=== PATIENT | female | born 2000 | race African-American/Black ===

== ENCOUNTER 2020-11-28 20:42 | Emergency (ER) | payer MEDICAID ==
[~2020-11-28] VITALS: Ht 170.2 cm; Wt 72.6 kg
[2020-11-28 20:49] VITALS: BP_SYST 114
[2020-11-28 21:38] LABS: CALCIUM 8.3 mg/dL (8.4-11.0); CREATININE 0.93 mg/dL (0.55-1.30); POTASSIUM 3.5 mmol/L (3.5-5.1)
[2020-11-28 21:43] LABS: BASOPHILS # (AUTO) 0.1 K/uL (0.0-0.2); BASOPHILS % (AUTO) 1.2 % (0.0-2.0); EOSINOPHILS # (AUTO) 0.1 K/uL (0.0-0.4); EOSINOPHILS % (AUTO) 1.5 % (0.0-4.0); HEMATOCRIT 36.8 % (36-48); HEMOGLOBIN 12.3 g/dL (12.0-16.0); LYMPHOCYTES # (AUTO) 2.4 K/uL (1.0-5.5); LYMPHOCYTES % (AUTO) 28.7 % (20.5-51.5); MEAN CORPUSCULAR HEMOGLOBIN 29 pg (27-31); MEAN CORPUSCULAR HGB CONC 33 % (32-36); MEAN CORPUSCULAR VOLUME 87 fL (79.0-98.0); MONOCYTES # (AUTO) 0.6 K/uL (0.0-1.0); MONOCYTES % (AUTO) 6.8 % (1.7-9.3); NEUTROPHILS # (AUTO) 5.2 K/uL (1.8-7.7); NEUTROPHILS % (AUTO) 61.8 % (40.0-70.0); PLATELET COUNT (AUTO) 249 K/uL (130-430); RED BLOOD CELL COUNT(AUTO) 4.24 MIL/uL (4.2-6.2); WHITE BLOOD COUNT (AUTO) 8.4 K/uL (4.5-11.0)
[2020-11-28 21:44] LABS: TOTAL BILIRUBIN 0.2 mg/dL (0.0-1.0)
[2020-11-28 22:29] LABS: BILIRUBIN,URINE NEGATIVE (NEGATIVE); CLARITY/URINE CLEAR (CLEAR); COLOR,URINE YELLOW (YELLOW); GLUCOSE,URINE NEGATIVE (NEGATIVE); KETONES,URINE NEGATIVE (NEGATIVE); LEUKOCYTE ESTERASE ,URINE NEGATIVE (NEGATIVE); NITRITE, URINE NEGATIVE (NEGATIVE); PROTEIN URINE NEGATIVE (NEGATIVE); UROBILINOGEN,URINE 0.2 (0.2-1.0)
[2020-11-28 22:33] LABS: BLOOD, URINE TRACE (NEGATIVE)
[2020-11-28 22:35] LABS: BACTERIA,URINE FEW /HPF (None Seen); WBC,URINE 0-3 /HPF (0-3)
[2020-11-28 22:39] LABS: BARBITURATE, URINE NEGATIVE (NEG <=200); BENZODIAZEPINE, URINE NEGATIVE (NEG <=150); CANNABINOID, URINE NEGATIVE (NEG <=50); COCAINE, URINE NEGATIVE (NEG <=150); METHAMPHETAMINES SCREEN,URINE NEGATIVE (NEG <=500); OPIATE, URINE NEGATIVE (NEG <=100); PHENCYCLIDINE SCREEN,URINE NEGATIVE (NEG <=25); UR TRICYCLIC ANTIDEPRESSANTS NEGATIVE (NEG <=300); URINE AMPHETAMINE NEGATIVE (NEG <=500); URINE METHADONE NEGATIVE (NEG <=200); URINE OXYCODONE SCREEN NEGATIVE (NEG <=100); URINE PROPOXYPHENE SCREEN NEGATIVE (NEG <=300)
[2020-11-28 22:41] LABS: ALCOHOL, BLOOD < 3 mg/dL (<10)
[2020-11-28 23:55] VITALS: BP_SYST 114
== END 2020-11-28 23:55 | disposition home or self-care (01) ==
LOC: SED 20:42
DX: F41.9 Anxiety disorder, unspecified (principal); T43.225A Adverse effect of selective serotonin reuptake inhibitors, initial encounter; R42 Dizziness and giddiness; Z79.899 Other long term (current) drug therapy; Y92.89 Other specified places as the place of occurrence of the external cause
CPT/HCPCS: 36415; 80053; 80307; 81000; 81025; 84443; 85025; 99283; G0482

== ENCOUNTER 2021-07-25 14:07 | Emergency (ER) | payer MEDICAID, SELFPAY ==
[~2021-07-25] VITALS: Ht 170.2 cm; Wt 78.0 kg
[2021-07-25 14:18] VITALS: BP_SYST 124
--- NOTE | 2021-07-25 14:20 | NUR ---
Pt to bed #5 coming from home ambulatory with steady gait accompanied by mother. Pt c/o flu symptoms such as body aches 6/10, nausea, fatigue, fever, and lack of appetite since yesterday at 5pm. No chest pain and no sob. VSS. NKA. No known medical conditions. Mother at bedside. Bed in lowest position. Isolation precautions initiated. Tori MANJARREZ to assume care.
--- NOTE | 2021-07-25 14:25 | NUR ---
Dr. Burns at bedside examining pt.
[2021-07-25] MEDS ORDERED: NACL 0.9% 1,000 ML IV ONE (14:45)
[2021-07-25] MEDS ORDERED: ONDANSETRON HCL 4 MG/2 ML VIAL IVP ONE (14:45)
--- NOTE | 2021-07-25 15:26 | NUR ---
Pateint presents to ER with nausea, vomitting for 2 days. She is alert and oriented x 4. Respirations are normal and unlabored. VSS. Upon assessment the patient has a slight fever which she took 2 tylenol for at home. Patient is dehydrated and states she has not had any water since yesterday. VSS.
[2021-07-25 15:33] LABS: CALCIUM 8.8 mg/dL (8.4-11.0); CREATININE 0.81 mg/dL (0.55-1.30); HEMATOCRIT 37.1 % (36-48); HEMOGLOBIN 12.2 g/dL (12.0-16.0); MEAN CORPUSCULAR HEMOGLOBIN 28 pg (27-31); MEAN CORPUSCULAR HGB CONC 33 % (32-36); MEAN CORPUSCULAR VOLUME 85 fL (79.0-98.0); PLATELET COUNT (AUTO) 175 K/uL (130-430); POTASSIUM 3.2 mmol/L (3.5-5.1); RED BLOOD CELL COUNT(AUTO) 4.36 MIL/uL (4.2-6.2); RED CELL DISTRIBUTION WIDTH 13.8 % (9.0-15.0); WHITE BLOOD COUNT (AUTO) 2.8 K/uL (4.5-11.0)
[2021-07-25 15:38] LABS: ALBUMIN 3.8 g/dL (3.4-4.8)
[2021-07-25 17:01] LABS: STREPTOCOCCUS A SCREEN (RAPID) NEGATIVE (NEGATIVE)
[2021-07-25 17:02] LABS: TOTAL BILIRUBIN 0.3 mg/dL (0.0-1.0)
[2021-07-25] MEDS ORDERED: POTA-178 PO (17:10)
--- NOTE | 2021-07-25 17:10 | NUR ---
Patient has tested positive for Covid-19.
[2021-07-25] MEDS ORDERED: POTASSIUM CHLORIDE 20 MEQ/PKT PACKET PO ONE (17:15)
--- NOTE | 2021-07-25 17:31 | NUR ---
Patient given written and verbal discharge instructions and verbalizes understanding. ER MD discussed with patient the results and treatment provided. Patient in stable condition. ID arm band removed. IV catheter removed intact and dressing applied, no active bleeding. Patient educated on pain management and to follow up with PMD. Pain Scale 0. Opportunity for questions provided and answered. Medication side effect fact sheet provided.
[2021-07-25 17:32] VITALS: BP_SYST 124
[2021-07-25 20:05] LABS: BAND % (MANUAL) 6 % (0-6); BASOPHILS % (MANUAL) 0 % (0-2); EOSINOPHILS % (MANUAL) 0 % (0-7); LYMPHOCYTES % (MANUAL) 20 % (20-46); MONOCYTES % (MANUAL) 18 % (0-11)
== END 2021-07-25 17:31 | disposition home or self-care (01) ==
LOC: SED 14:07
DX: U07.1 COVID-19 (principal); E87.6 Hypokalemia; Z79.899 Other long term (current) drug therapy; Z20.822 Contact with and (suspected) exposure to COVID-19
CPT/HCPCS: 36415; 71045; 80053; 83690; 85007; 85027; 86403; 87081; 87426; 87804 ×2; 96361; 96374; 99284; J2405; J7030

== ENCOUNTER 2022-11-21 00:04 | Emergency (ER) | payer MEDICAID ==
[~2022-11-21] VITALS: Ht 170.2 cm; Wt 81.6 kg
[~2022-11-21 00:04] MED LIST: POTA-178 PO
[2022-11-21 00:21] VITALS: BP_SYST 134; PULSE 69; RESP 17; TEMP 98; O2SAT 100
[2022-11-21] MEDS ORDERED: ACETAMINOPHEN 325 MG TABLET PO ONE (00:45)
[2022-11-21] MEDS ORDERED: IBUPROFEN 600 MG TABLET PO ONE (00:45)
[2022-11-21] MEDS ORDERED: IBUP-1970 PO (02:08)
[2022-11-21] MEDS ORDERED: ACET-2634 PO (02:08)
[2022-11-21] MEDS ORDERED: ONDA-8 TL (02:08)
[2022-11-21 02:55] VITALS: BP_SYST 134; PULSE 69; RESP 17; TEMP 98; O2SAT 100
== END 2022-11-21 02:55 | disposition home or self-care (01) ==
LOC: SED 00:04
DX: S40.021A Contusion of right upper arm, initial encounter (principal); S50.811A Abrasion of right forearm, initial encounter; S09.90XA Unspecified injury of head, initial encounter; F07.81 Postconcussional syndrome; Z79.899 Other long term (current) drug therapy; Y04.0XXA Assault by unarmed brawl or fight, initial encounter; Y93.89 Activity, other specified; Y92.89 Other specified places as the place of occurrence of the external cause; Y99.8 Other external cause status
CPT/HCPCS: 70450-TC; 70486-TC; 76376; 99284